=== PATIENT | male | born 1955 | race Caucasian/White ===

== ENCOUNTER 2020-04-20 22:50 | Emergency (ER) | payer BC ==
[2020-04-20 23:12] LABS: HEMOGLOBIN 13.6 gm/dl (14.0-17.5); RED BLOOD COUNT 4.2 M/UL (4.20-5.50)
[2020-04-20 23:36] LABS: BUN/CREATININE RATIO 16 (0-10)
== END 2020-04-21 03:26 | disposition home or self-care (01) ==
LOC: ER1 22:50
PROVIDERS: Physician Assistant
DX: F10.129 Alcohol abuse with intoxication, unspecified (principal); E87.6 Hypokalemia; I12.9 Hypertensive chronic kidney disease with stage 1 through stage 4 chronic kidney disease, or unspecified chronic kidney disease; N18.9 Chronic kidney disease, unspecified; Z88.0 Allergy status to penicillin; Y90.7 Blood alcohol level of 200-239 mg/100 ml; Z20.822 Contact with and (suspected) exposure to COVID-19
CPT/HCPCS: 36600; 70450; 71045; 80053; 80307; 81001; 82140; 82550; 82553; 82803; 83605; 83690; 83874; 84484; 85025; 87086; 93005; 99285; G0480; U0002